=== PATIENT | male | born 1970 | race Caucasian/White ===

== ENCOUNTER 2017-04-23 11:09 | Emergency (ER) | payer BC ==
[~2017-04-23] VITALS: Ht 170.2 cm; Wt 69.0 kg
[~2017-04-23 11:09] MED LIST: ASPI-664 PO
[2017-04-23 11:11] VITALS: Ht 170.2 cm; Wt 69.0 kg
--- NOTE | 2017-04-23 11:36 | ERD ---
ER Documentation Chief Complaint Chief Complaint CHEST PAIN RADITING TO BACK SINCE LAST NIGHT , NO RELIEF WITH NITRO HPI This is a very pleasant 47-year-old male, his family is acting as an christmas tree farm worker. He describes chest pain. The patient describes substernal chest pain that is aching, moderate approximately 5 out of 10 and is not radiating despite wound was noted in triage. Consider language barrier as the discrepancy. The patient describes that it is central and worse when moving and rotating his body. He denies any pleuritic pain and no significant shortness of breath. He has had similar symptoms in the past with a cardiac workup as an inpatient in July 2015. He denies any recent heavy lifting, calf swelling, fevers chills or cough, surgery or immobilization or prolonged trips or travel. He has no symptoms currently. He denies exertional symptoms. He is a non-smoker and does not take medications on a regular basis other than nitroglycerin which was given during his visit in July. He took aspirin prior to arrival. ROS All systems reviewed and are negative except as per history of present illness. Medications Home Meds Reported Medications Tamsulosin Hcl* (Tamsulosin Hcl*) 0.4 Mg Cap.er.24h, 0.4 MG PO DAILY, CAP 04/23/17 Esomeprazole Mag Trihydrate (Nexium) 20 Mg Capsule.dr, 20 MG PO DAILY, #30 CAP 04/23/17 Aspirin* (Aspirin* EC) 81 Mg Tablet.dr, 81 MG PO DAILY, TAB 08/13/15 Allergies Allergies: Coded Allergies: No Known Allergy (Unverified , 04/23/17) PMhx/Soc History of Surgery: Yes (APPENDECTOMY) Anesthesia Reaction: No Hx Neurological Disorder: No Hx Cardiac Disorders: No Hx Psychiatric Problems: No Hx Miscellaneous Medical Probl: No Hx Alcohol Use: No Hx Substance Use: No Hx Tobacco Use: No FmHx Family History: No coronary disease, No diabetes Physical Exam Vitals Vital Signs Date Time Temp Pulse Resp B/P Pulse Ox O2 Delivery O2 Flow Rate FiO2 04/23/17 13:39 48 18 95/73 100 Room Air 04/23/17 11:11 98.7 56 18 109/69 97 Physical Exam General: Well developed, well nourished, no acute distress Head: Normocephalic, atraumatic. Eyes: Pupils equally reactive, EOM intact ENT: Moist mucous membranes Neck: Supple, no lymphadenopathy Respiratory: Lungs clear bilaterally, no distress Cardiovascular: RRR, no murmurs, rubs, or gallops Abdominal: Soft, non-tender, non-distended, no peritoneal signs : Deferred MSK: No edema, no unilateral swelling, 5/5 strength, no pulse deficits Neurologic: Alert and oriented, moving all extremities, normal speech, no focal weakness, no cerebellar signs Skin: No rash Psych: Normal mood Result Diagram: 04/23/17 1145 04/23/17 1145 Results 24 hrs Laboratory Tests Test 04/23/17 11:45 04/23/17 14:00 White Blood Count 6.910^3/ul Red Blood Count 4.5610^6/ul Hemoglobin 14.7g/dl Hematocrit 41.8% Mean Corpuscular Volume 91.7fl Mean Corpuscular Hemoglobin 32.2pg Mean Corpuscular Hemoglobin Concent 35.2g/dl Red Cell Distribution Width 11.9% Platelet Count 71978^3/UL Mean Platelet Volume 10.0fl Neutrophils % 54.5% Lymphocytes % 35.0% Monocytes % 8.4% Eosinophils % 1.4% Basophils % 0.4% Nucleated Red Blood Cells % 0.0/100WBC Neutrophils # 3.810^3/ul Lymphocytes # 2.410^3/ul Monocytes # 0.610^3/ul Eosinophils # 0.110^3/ul Basophils # 0.010^3/ul Nucleated Red Blood Cells # 0.010^3/ul Sodium Level 138mmol/L Potassium Level 4.0mmol/L Chloride Level 103mmol/L Carbon Dioxide Level 26mmol/L Anion Gap 13 Blood Urea Nitrogen 11mg/dl Creatinine 0.84mg/dl Glucose Level 93mg/dl Calcium Level 9.2mg/dl Troponin I < 0.012ng/ml < 0.012ng/ml Current Medications Medications (Trade) Dose Ordered Sig/Ezequiel Route PRN Reason Start Time Stop Time Status Last Admin Dose Admin Aspirin (Aspirin) 162 mg ONCE ONCE PO 04/23/17 12:00 04/23/17 12:01 DC 04/23/17 11:56 Procedures/MDM EKG, MONITORS, & DIAGNOSTIC IMAGING: EKG: I reviewed and interpreted a 12-lead EKG. Rhythm: Slight sinus bradycardia Ectopy: None Intervals: No abnormalities ST segments: No elevations or depressions T waves: No contiguous inversions Repeat EKG: EKG: I reviewed and interpreted a 12-lead EKG. Rhythm: Normal sinus rhythm Ectopy: None Intervals: No abnormalities ST segments: No elevations or depressions T waves: No contiguous inversions Chest x-ray: I reviewed and interpreted a 1 view of the chest Mediastinum: No enlargement Cardiac silhouette: No cardiomegaly Airspace: Clear lung zuleta bilaterally without evidence of pneumothorax Bones: No evidence of fracture LAB INTERPRETATION: Negative troponin 2 MEDICAL DECISION MAKING: The patient's history, physical exam and clinical presentation is concerning for possible cardiogenic etiology and acute coronary syndrome however, he has no significant risk factors, atypical presentation and reproducible symptoms with chest wall movement. The patient has had a cardiac workup in the past but no provocative testing. Given his very atypical presentation cardiac etiology seems less likely though needs to be ruled out. Based on the patient's clinical exam and history and risk factors, I have a much lower clinical concern for pulmonary embolism, acute aortic dissection, pneumothorax, pneumonia, cardiac tamponade HEART Score: 1 for age MACE Rate: Less than 1.7% Shared Decision Making: We had a conversation regarding risk stratification, MACE rate, and the risks, benefits, alternatives of disposition planning options. Disposition planning: I offered inpatient hospitalization to rule out ACS however the patient feels eager to go home. He verbalized understanding of the risks through his family member. He would like a 3 hour delta troponin based on protocols that were discussed and understood. ER COURSE: The patient currently has no chest pain. Completion of aspirin dose provided in the emergency room. Again, this is more likely musculoskeletal versus nonspecific chest pain. Outpatient workup may be reasonable. We did discuss hospitalization and I offered and recommended it however given the patient's understanding of the risks involved he would prefer outpatient workup which I believe is reasonable. A 3 hour delta troponin will be ordered. 3 hour delta troponin was negative. The patient remains asymptomatic. We again discussed close outpatient management and follow-up with primary care physician and referral to chief physical therapist. The patient feels that he can do this through his primary care physician and does not require referral information for me. We did discuss return precautions including any exertional symptoms or recurrence of pain that is uncontrolled. I kept the patient and/or family informed of laboratory and diagnostic imaging results throughout the emergency room course. DISPOSITION PLAN: We discussed follow up with the patient's primary care doctor within 24 to 48 hours as needed. We also discussed return to the emergency room for worsening symptoms or worsening condition. Outpatient referral: Primary care physician and cardiology Departure Diagnosis: Primary Impression: Chest pain Chest pain type: unspecified Qualified Code: R07.9 - Chest pain, unspecified type Condition: Stable JAYME PALMER MD Apr 23, 2017 11:36
--- NOTE | 2017-04-23 11:52 | RADRPT ---
PROCEDURE: XR Chest. CLINICAL INDICATION: chest pain TECHNIQUE: Single frontal view of the chest was obtained COMPARISON: CR CHEST 08/13/2015 FINDINGS: The heart and mediastinum are within normal limits. The lungs are clear. There is no pleural effusion or pneumothorax. RPTAT: AA IMPRESSION: No acute disease. .Taj Monge MD, MD Date Time Electronically viewed and signed by .Taj Monge MD, on 04/23/2017 11:52 .S/
[2017-04-23] MEDS ORDERED: ASPIRIN 81 MG TAB PO ONE (12:00)
[2017-04-23 12:07] LABS: BASOPHILS % 0.4 % (0.0-2.0); EOSINOPHILS # 0.1 10^3/ul (0.0-0.5); EOSINOPHILS % 1.4 % (0.0-7.0); HEMATOCRIT 41.8 % (42.0-52.0); HEMOGLOBIN 14.7 g/dl (14.0-18.0); LYMPHOCYTES # 2.4 10^3/ul (0.8-2.9); MEAN CORPUSCULAR HEMOGLOBIN 32.2 pg (29.0-33.0); MEAN CORPUSCULAR HGB CONC 35.2 g/dl (32.0-37.0); MEAN CORPUSCULAR VOLUME 91.7 fl (82.0-101.0); MONOCYTE # 0.6 10^3/ul (0.3-0.9); MONOCYTES % 8.4 % (0.0-11.0); NEUTROPHIL # 3.8 10^3/ul (1.6-7.5); NEUTROPHILS % 54.5 % (39.0-77.0); PLATELET COUNT 165 10^3/UL (140-415); RED BLOOD COUNT 4.56 10^6/ul (4.70-6.10); RED CELL DISTRIBUTION WIDTH 11.9 % (11.5-14.5); WHITE BLOOD COUNT 6.9 10^3/ul (4.8-10.8)
[2017-04-23 12:37] LABS: ANION GAP 13 (8-16); BLOOD UREA NITROGEN 11 mg/dl (7-20); CALCIUM 9.2 mg/dl (8.4-10.2); CARBON DIOXIDE 26 mmol/L (21-31); CHLORIDE 103 mmol/L (97-110); CREATININE 0.84 mg/dl (0.61-1.24); GLUCOSE 93 mg/dl (70-220); SODIUM 138 mmol/L (135-144)
[2017-04-23 12:48] LABS: TROPONIN-I < 0.012 ng/ml (0.00-0.12)
[2017-04-23] MEDS ORDERED: ESOM20CA PO (12:54)
[2017-04-23] MEDS ORDERED: TAMS0.4C2 PO (12:54)
[2017-04-23 15:19] VITALS: BP 100/70; PULSE 62; RESP 18
== END 2017-04-23 15:33 | disposition home or self-care (01) ==
LOC: E/R 11:09
DX: R07.9 Chest pain, unspecified (principal); Z79.82 Long term (current) use of aspirin
CPT/HCPCS: 36415; 71010; 80048; 84484; 85025; 93005; Z7502; Z7610